=== PATIENT | female | born 1950 | race Hispanic/Latino ===

== ENCOUNTER → 2025-08-28 | Outpatient (CLI) | payer MEDICARE ==
--- NOTE | 2025-08-29 00:10 | HMCIMG ---
EXAM: CR Lumbar Spine, 3 View CLINICAL HISTORY: Low back pain (LBP) COMPARISON: None available. FINDINGS: Bones: No acute fracture or destructive osseous lesion. Vertebral body heights maintained. Alignment: Normal lumbar alignment. No listhesis or scoliosis. Disc Spaces / Degenerative Changes: Moderate to severe degenerative lumbar spondylosis with reduced intervertebral disc spaces at L3-L4, L4-L5, and L5-S1. Prominent endplate sclerosis and anterior and posterior osteophytes. Facet joint degeneration is severe at corresponding levels with associated hypertrophic changes. Soft Tissues: Paravertebral soft tissues are unremarkable. No prevertebral swelling or abnormal calcification. IMPRESSION: * Moderate to severe degenerative lumbar spondylosis with reduced disc spaces at L3-L4 through L5-S1 and advanced facet arthrosis. * No acute fracture or listhesis. 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 Radiologic???clinical correlation advised for assessment of mechanical back pain and radicular symptoms. /Justice
== END | disposition home or self-care (01) ==
LOC: RAH 09:24
PROVIDERS: ATTEND Internal Medicine
DX: M47.817 Spondylosis without myelopathy or radiculopathy, lumbosacral region (principal); M51.370 Other intervertebral disc degeneration, lumbosacral region with discogenic back pain only
CPT/HCPCS: 72100